=== PATIENT | male | born 1960 | race African-American/Black ===

== ENCOUNTER 2020-07-14 17:59 | Inpatient (IN) | payer OTHER ==
[2020-07-14] MEDS ORDERED: P-EPHED 60MG/TRIPROLIDI 2.5MG TABLET PO PRN (21:05)
[2020-07-14] MEDS ORDERED: DICYCLOMINE HCL 10 MG CAPSULE PO PRN (21:05)
[2020-07-14] MEDS ORDERED: BISMUTH SUBSALICYLATE 524 MG/30 ML UD PO PRN (21:05)
[2020-07-14] MEDS ORDERED: MAG HYDROX/AL HYDROX/SIMETH 30 ML UNIT-DOSE CUP PO PRN (21:05)
[2020-07-14] MEDS ORDERED: hydrOXYzine PAMOATE 25 MG CAPSULE (FP) PO PRN (21:05)
[2020-07-14] MEDS ORDERED: MAGNESIUM HYDROX 2400MG/30ML ORAL SUSPENSION 30 ML CUP PO PRN (21:05)
[2020-07-14] MEDS ORDERED: METHOCARBAMOL 500 MG TABLET PO PRN (21:05)
[2020-07-14] MEDS ORDERED: guaiFENesin 200 MG/10 ML 10 ML UNIT-DOSE CUPS PO PRN (21:05)
[2020-07-14] MEDS ORDERED: IBUPROFEN 400 MG TABLET (FP) PO PRN (21:05)
[2020-07-14] MEDS ORDERED: ONDANSETRON *ODT* 4 MG TABLET SL PRN (21:05)
[2020-07-14] MEDS ORDERED: NICOTINE POLACRILEX 2 MG GUM BUC PRN (21:05)
[2020-07-14] MEDS ORDERED: MENTHOL/PHENOL 1 EACH UD MM PRN (21:05)
[2020-07-14] MEDS ORDERED: MAGNESIUM CITRATE 300 ML BOTTLE PO PRN (21:05)
[2020-07-14] MEDS ORDERED: ACETAMINOPHEN 325 MG TABLET (FP) PO PRN ×2 (21:05)
[2020-07-14] MEDS ORDERED: cloNIDine HCL 0.1 MG TABLET PO ONE (21:08)
[2020-07-14 21:13] VITALS: BMI 25.2
[2020-07-14] MEDS ORDERED: cloNIDine HCL 0.1 MG TABLET ONE (21:37)
[2020-07-14] MEDS ORDERED: THIAMINE HCL 100 MG TABLET (FP) PO SCH (22:00)
[2020-07-14] MEDS ORDERED: MELATONIN 5 MG TABLETS PO SCH (22:00)
[2020-07-15 09:00] VITALS: BP 140/88; PULSE 92; TEMP 98.2
[2020-07-15] MEDS ORDERED: PRENATAL VITAMINS W/ FOLIC ACID TABLET (FP) PO SCH (10:00)
[2020-07-15] MEDS ORDERED: NICOTINE 14 MG/24 HOURS TOPICAL PATCH TD SCH (10:00)
[2020-07-15 11:41] LABS: HEMATOCRIT 36.5 % (35.4-49); HEMOGLOBIN 12.3 GM/dL (11.7-16.9); MCHC 33.6 g/dl (32.0-35.9); MEAN CELL VOLUME 92.1 fl (80-96); MEAN PLT VOLUME 8.3 fl (7.5-11.1); PLATELET COUNT 370 K/MM3 (134-434); RBC 3.96 M/mm3 (4.00-5.60); RDW 15.5 % (11.9-15.9); WHITE BLOOD COUNT 5.9 K/mm3 (4.0-10.0)
[2020-07-15 11:43] LABS: ALBUMIN 3.1 g/dl (3.4-5.0); BLOOD UREA NITROGEN 17.2 mg/dL (7-18); CALCIUM 8.8 mg/dL (8.5-10.1)
[2020-07-15 11:46] LABS: CREATININE 0.9 mg/dL (0.55-1.3)
[2020-07-15 11:48] LABS: BILIRUBIN,TOTAL 0.6 mg/dL (0.2-1); TOT PROT 6.5 g/dl (6.4-8.2)
== END 2020-07-15 10:00 | disposition home or self-care (01) | DRG 774 ==
LOC: YASAS 17:59 → Y3N 21:45
PROVIDERS: ADMIT Allergy & Immunology; ATTEND Allergy & Immunology
PROC: HZ2ZZZZ Detoxification Services for Substance Abuse Treatment (ICD-10-PCS; principal; 2020-07-14)
DX: F10.230 Alcohol dependence with withdrawal, uncomplicated (principal); F14.20 Cocaine dependence, uncomplicated; F12.20 Cannabis dependence, uncomplicated; F17.210 Nicotine dependence, cigarettes, uncomplicated; F19.24 Other psychoactive substance dependence with psychoactive substance-induced mood disorder; F60.3 Borderline personality disorder; I10 Essential (primary) hypertension; Z91.19 Patient's noncompliance with other medical treatment and regimen; Z59.0 Homelessness
CPT/HCPCS: 36415; 80053; 85027; 86780; 93005; 93010; C9803; J0735; U0003; U0005